=== PATIENT | female | born 1950 | race Caucasian/White ===

== ENCOUNTER 2021-11-09 15:58 | Emergency (ER) | payer MEDICAID ==
[~2021-11-09] VITALS: Ht 162.6 cm; Wt 81.8 kg
[~2021-11-09 15:58] MED LIST: ASPI-1265 PO; HYDR12.522 PO; MULT-785 PO; OMEG-79 PO; ZES10T PO
--- NOTE | 2021-11-09 16:45 | NUR ---
Patient refused Regeneron treatment; PA notified; pharmacy notified.
[2021-11-09 16:49] LABS: HEMOGLOBIN 11.7 g/dl (12.0-16.0); MEAN CORPUSCULAR HEMOGLOBIN 25.6 PG (27.0-31.0); MONOCYTES # (AUTO) 0.2 X10'3 (0-0.9); NEUTROPHILS # (AUTO) 1.4 X10'3 (1.8-7.7); RED CELL DISTRIBUTION WIDTH 18.1 % (11.5-14.5); WHITE BLOOD COUNT 2.2 X10'3 (4.5-11.0)
[2021-11-09 16:51] LABS: BASOPHILS % (AUTO) 0.6 % (0-1); EOSINOPHILS % (AUTO) 0.3 % (0-6); HEMATOCRIT 35.6 % (35.0-45.0); LYMPHOCYTES # (AUTO) 0.6 X10'3 (1.1-4.8); LYMPHOCYTES % (AUTO) 26.9 % (21-51); MEAN CORPUSCULAR HGB CONC 32.9 g/dL (33.0-36.5); MEAN CORPUSCULAR VOLUME 77.8 FL (78-98); MONOCYTES % (AUTO) 8.6 % (2-12); NEUTROPHILS % (AUTO) 63.6 % (42-75); PLATELET COUNT 106 X10'3 (140-440); RED BLOOD COUNT 4.57 X10'6 (4.20-5.60)
[2021-11-09] MEDS ORDERED: CASIRIVIMAB/IMDEVIMAB (REGEN-COV) 600mg/600mg inject. SQ ONE ×4 (17:00)
[2021-11-09] MEDS ORDERED: CASIRIVIMAB/IMDEVIMAB inject. 10 ML in normal saline 100ml IV soln 100 ML IV ONE (17:00)
[2021-11-09 17:01] LABS: ALANINE AMINOTRANSFERASE 27 U/L (12-78); ALBUMIN 3.7 G/DL (3.4-5.0); ALBUMIN/GLOBULIN RATIO 1.2 (1.1-1.5); ALKALINE PHOSPHATASE 78 IU/L (46-116); ANION GAP 12 (8-16); ASPARTATE AMINO TRANSFERASE 32 U/L (10-37); BILIRUBIN,TOTAL 0.5 MG/DL (0.1-1.0); BLOOD UREA NITROGEN 14 MG/DL (7-18); BUN/CREATININE RATIO 18.7 (6.6-38.0); CALCIUM 8.7 MG/DL (8.5-10.1); CHLORIDE 102 MMOL/L (99-107); CREATININE 0.75 MG/DL (0.40-0.90); GLUCOSE 100 MG/DL (70-104); POTASSIUM 3.9 MMOL/L (3.5-5.1); SODIUM 139 MMOL/L (135-145); TOTAL CARBON DIOXIDE 25.2 MMOL/L (24-32); TOTAL PROTEIN 6.9 G/DL (6.4-8.2); eGFR 76 ML/MIN
[2021-11-09] MEDS ORDERED: ALBU8HFA PO (17:27)
[2021-11-09] MEDS ORDERED: BENZ-38 PO (17:27)
[2021-11-09 17:29] VITALS: BP 139/84
[2021-11-09 17:45] LABS: ANISOCYTOSIS 2+; ELLIPTOCYTES 1+; MICROCYTOSIS 1+; PLATELET ESTIMATE DECREASED; TOTAL CELLS COUNTED 100
[2021-11-09 17:46] LABS: SCHISTOCYTES FEW
== END 2021-11-09 17:38 | disposition home or self-care (01) ==
LOC: ER 15:58
DX: U07.1 COVID-19 (principal); J12.82 Pneumonia due to coronavirus disease 2019; E78.00 Pure hypercholesterolemia, unspecified; I10 Essential (primary) hypertension; Z88.2 Allergy status to sulfonamides; Z79.82 Long term (current) use of aspirin; Z79.899 Other long term (current) drug therapy
CPT/HCPCS: 36415; 71045; 80053; 85007; 85025; 99284

== ENCOUNTER 2024-10-14 07:57 | Day surgery (SDC) | payer MEDICARE, MEDICAID ==
[2024-10-14] VITALS (9 sets, daily range): BP systolic 93–139; BP diastolic 58–93; PULSE 76–100; RESP 13–17; TEMP 99.3; O2SAT 93–100
[~2024-10-14] VITALS: Ht 160 cm; Wt 57.0 kg
[~2024-10-14 07:57] MED LIST changes: -ASPI-1265 PO; -HYDR12.522 PO; +LACT1CAP76 PO; +LEVO750T68 PO; +LOSA50TA64 PO; +MIRT7.5T11 PO; +OMEP20CA16 PO; +PRE1T PO; +SERT-433 PO; -ZES10T PO
[2024-10-14] MEDS: famotidine 20mg tablet PO ONE (08:45)
[2024-10-14] MEDS: ringers solution, lacted 1,000 ML IV SCH (08:52)
[2024-10-14] MEDS ORDERED: ondansetron/PF 4mg/2ml inj IV PRN (08:55)
[2024-10-14] MEDS ORDERED: hydrALAZINE 20mg/ml inj. IV PRN (08:55)
[2024-10-14] MEDS ORDERED: labetalol 20mg/4ml (5mg/ml) syringe IV PRN (08:55)
[2024-10-14] MEDS ORDERED: ringers solution, lacted 1,000 ML IV SCH (08:55)
[2024-10-14] MEDS ORDERED: morphine 2 MG/ML inj. syringe IV PRN (08:55)
[2024-10-14] MEDS ORDERED: morphine 4 MG/ML inj SYRINge IV PRN (08:55)
[2024-10-14] MEDS ORDERED: fentaNYL/PF 50MCG/1 ML 2ML syringe IV PRN ×2 (08:55)
[2024-10-14] MEDS ORDERED: sevoflurane 250ml liquid IH ONE (09:45)
[2024-10-14] MEDS ORDERED: fentaNYL/PF 50MCG/1 ML 2ML syringe ONE (09:47)
[2024-10-14] MEDS ORDERED: rocuronium 10mg/ml inj IV ONE ×2 (09:49→10:02)
[2024-10-14] MEDS ORDERED: midazolam 1 mg/ML 2ml injection ONE (09:49)
[2024-10-14] MEDS ORDERED: LIDOcaine 2% (20mg/ml) 5ml vial ONE (10:02)
[2024-10-14] MEDS ORDERED: acetaminophen 1,000mg/100ml IV 100 ML IV ONE (10:05)
[2024-10-14] MEDS ORDERED: sugammadex 200mg/2ml injection IV ONE (10:26)
[2024-10-14 12:09] LABS: BAL APPEARANCE HAZY; BAL COLOR COLORLESS; BAL RBC 83 /CU MM; BAL WBC 285 /CU MM
== END 2024-10-14 11:57 | disposition home or self-care (01) ==
LOC: PRE-OP 07:57
PROVIDERS: ATTEND Internal Medicine Critical Care Medicine
DX: R91.8 Other nonspecific abnormal finding of lung field (principal); D64.9 Anemia, unspecified; R59.1 Generalized enlarged lymph nodes; E78.5 Hyperlipidemia, unspecified; Z79.899 Other long term (current) drug therapy; Z87.891 Personal history of nicotine dependence; Z88.2 Allergy status to sulfonamides; Z88.8 Allergy status to other drugs, medicaments and biological substances; Z98.890 Other specified postprocedural states
CPT/HCPCS: 31624; 31627; 31628; 31629; 31653; 71045; 82948; 87015; 87070; 87102; 87116; 87206; 88184; 88185; 88341; 88342; 89051; A4618; J0131; J1100; J2003; J2250; J2405; J2704; J3010; J3490; J7120; Z7506; Z7508; Z7512; Z7610; 31622; 31625; 31626; 31654; 88173; 88305; 94760